=== PATIENT | female | born 1940 | race Caucasian/White ===

== ENCOUNTER 2021-02-02 08:09 | Day surgery (SDC) | payer SELFPAY ==
[2021-02-01 11:58] VITALS: BMI 27.9
[2021-02-02] MEDS ORDERED: TETRACAINE 0.5% OPHTH SOLN 2 ML BOTTLE ONE (09:55)
[2021-02-02] MEDS ORDERED: ERYTHROMYCIN 0.5% OPHTHALMIC OINTMENT 3.5 GM TUBE ONE ×2 (09:55→10:16)
[2021-02-02] MEDS ORDERED: POVIDONE-IODINE 5% OPHTHALMIC PREP 30 ML SOLUTION ONE (09:56)
[2021-02-02] MEDS ORDERED: LIDOCAINE 1%/EPI 1:100000 (20 ML MULTI DOSE VIAL) ONE ×2 (09:56→12:36)
[2021-02-02] MEDS ORDERED: MIDAZOLAM HCL 2 MG/2 ML SINGLE DOSE VIAL ONE (10:06)
[2021-02-02] MEDS ORDERED: GLYCOPYRROLATE 0.2 MG/1 ML VIAL ONE (10:31)
[2021-02-02] MEDS ORDERED: VASOPRESSIN 20 UNITS/ML VIAL IV ONE (10:45)
[2021-02-02] MEDS ORDERED: ESMOLOL HCL 100,000 MCG/10 ML VIAL ONE (10:47)
[2021-02-02] MEDS ORDERED: ceFAZolin SODIUM 1 GM VIAL ONE (10:50)
[2021-02-02] MEDS ORDERED: PROPOFOL 20 ML ONE ×2 (11:20→12:31)
[2021-02-02] MEDS ORDERED: DEXAMETHASONE SOD PHOSPHATE 4 MG/1 ML VIAL ONE (11:23)
[2021-02-02] MEDS ORDERED: ONDANSETRON 4 MG/2 ML VIAL ONE ×2 (11:23→13:58)
[2021-02-02] MEDS ORDERED: ONDANSETRON 4 MG/2 ML VIAL IVPUSH PRN (13:40)
[2021-02-02] MEDS ORDERED: LACTATED RINGERS SOLUTION 1,000 ML IV SCH (13:45)
[2021-02-02] MEDS ORDERED: oxyCODONE HCL 5 MG TABLET PO PRN (14:51)
[2021-02-02] MEDS ORDERED: ACETAMINOPHEN INJECTION 100 ML IVPB ONE (15:00)
[2021-02-02] MEDS ORDERED: ACETAMINOPHEN 1000 MG/100 ML VIAL (NON FORMULARY) IVPB ONE (15:05)
[2021-02-02 15:30] VITALS: PULSE 86; TEMP 98
[2021-02-02 15:59] VITALS: BP 140/71
[2021-02-02] MEDS ORDERED: ACETAMINOPHEN 325 MG TABLET (FP) PO PRN (22:00)
== END 2021-02-02 16:00 | disposition home or self-care (01) ==
LOC: FASU 08:09
PROVIDERS: ATTEND Ophthalmology
CPT/HCPCS: 94760; J0131